=== PATIENT | female | born 1995 | race American Indian/Alaskan Native ===

== ENCOUNTER 2016-05-31 04:30 | Emergency (ER) | payer SELFPAY ==
[2016-05-31 05:06] LABS: Bilirubin,Urine NEG (Negative); Blood,Urine NEG (Negative); Ketones,Urine TR mg/dL (Negative); Leukocyte Esterase,Urine NEG (Negative); Mucus,Urine 3+ /HPF; Nitrite,Urine NEG (Negative)
[2016-05-31 05:42] LABS: Basophils % (Auto) 0.3 % (0.0-1.8); Eosinophils % (Auto) 0.9 % (0.0-4.3); Hematocrit 36.6 % (30.3-42.9); Hemoglobin 11.8 gm/dl (10.1-14.3); Mean Corpuscular HGB Conc 32 % (30-34); Mean Corpuscular Volume 75 fl (79-97); Platelet Count 209 K/mm3 (140-440); Red Blood Count 4.89 M/mm3 (3.65-5.03); Red Cell Distribution Width 15.2 % (13.2-15.2); White Blood Count 6.2 K/mm3 (4.5-11.0)
[2016-05-31 05:48] LABS: Mean Corpuscular Hemoglobin 24 pg (28-32)
[2016-05-31 06:00] LABS: Alanine Aminotransferase 30 units/L (7-56); Albumin 3.6 g/dL (3.9-5); Albumin/Globulin Ratio 0.9 %; Alkaline Phosphatase 85 units/L (35-129); Anion Gap 17 mmol/L; BUN/Creatinine Ratio 8.88; Bilirubin,Total < 0.2 mg/dL (0.1-1.2); Blood Urea Nitrogen 8 mg/dL (7-17); Calcium 8.5 mg/dL (8.4-10.2); Carbon Dioxide 25 mmol/L (22-30); Chloride 102.3 mmol/L (98-107); Glucose 98 mg/dL (65-100); Lipase 33 units/L (13-60); Potassium 3.1 mmol/L (3.6-5.0); Sodium 141 mmol/L (137-145); Total Protein 7.8 g/dL (6.3-8.2)
--- NOTE | 2016-05-31 08:40 | Emergency Department Report ---
ED Abdominal Pain HPI - General Chief Complaint: Abdominal Pain Stated Complaint: ABD PAIN Time Seen by Provider: 05/31/16 08:40 Source: patient, family Mode of arrival: Ambulatory Limitations: No Limitations - History of Present Illness Initial Comments: Patient here complaining of abdominal pain with nausea vomiting and diarrhea since Sunday. She ate some chicken wings and Sunday morning she woke up and she started vomiting she hasn't vomited since yesterday but has been having diarrhea since Sunday night. Her abdominal pain is all over and feels cramping. Denies any fever or chills. Denies any vaginal bleeding or discharge. Last menstrual period was 05/26/2016. She did not take any over-the- counter medication and describes the pain as cramping and 9 out of 10. MD Complaint: abdominal pain, other (nausea vomiting and diarrhea) Onset/Timin -: days(s) Location: diffuse Radiation: none Migration to: no migration Severity: severe Severity scale (0 -10): 9 Quality: cramping Consistency: intermittent Improves With: bowel movement Worsens With: eating Context: possible food poisoning Associated Symptoms: nausea, vomiting, diarrhea. denies: fever, chills, constipation, dysuria, hematemesis, hematochezia, melena, hematuria, anorexia, syncope - Related Data LMP Date: 05/26/16 Previous Rx's Medication Instructions Recorded Last Taken Type Dicyclomine [Bentyl] 20 mg PO TID #12 tablet 05/31/16 Unknown Rx Potassium Chloride [K-Dur] 20 meq PO BID #2 tab 05/31/16 Unknown Rx Promethazine [Phenergan TAB] 25 mg PO Q6HR PRN #15 tab 05/31/16 Unknown Rx Allergies Allergy/AdvReac Type Severity Reaction Status Date / Time No Known Allergies Allergy Verified 05/04/15 13:02 ED Review of Systems ROS: Stated complaint: ABD PAIN Other details as noted in HPI Comment: All other systems reviewed and negative Constitutional: denies: chills, fever Eyes: denies: eye pain ENT: denies: ear pain, throat pain, congestion Respiratory: no symptoms reported Cardiovascular: denies: chest pain, palpitations, edema, syncope Gastrointestinal: abdominal pain, nausea, vomiting, diarrhea. denies: hematemesis, melena, hematochezia Genitourinary: denies: urgency, dysuria, frequency, hematuria, discharge, abnormal menses Musculoskeletal: denies: back pain, arthralgia Skin: denies: rash Neurological: denies: headache ED Past Medical Hx - Past Medical History Previous Medical History?: No - Surgical History Past Surgical History?: No - Family History Family history: no significant - Social History Smoking Status: Never Smoker Substance Use Type: None - Medications Home Medications: Home Medications Medication Instructions Recorded Confirmed Last Taken Type Dicyclomine [Bentyl] 20 mg PO TID #12 tablet 05/31/16 Unknown Rx Potassium Chloride [K-Dur] 20 meq PO BID #2 tab 05/31/16 Unknown Rx Promethazine [Phenergan TAB] 25 mg PO Q6HR PRN #15 tab 05/31/16 Unknown Rx ED Physical Exam - General Limitations: No Limitations General appearance: alert, in no apparent distress - Head Head exam: Present: atraumatic, normocephalic, normal inspection - Eye Eye exam: Present: normal appearance, PERRL, EOMI. Absent: periorbital swelling , periorbital tenderness Pupils: Present: normal accommodation - ENT ENT exam: Present: normal orophraynx, mucous membranes dry, TM's normal bilaterally, normal external ear exam - Neck Neck exam: Present: normal inspection, full ROM. Absent: tenderness, meningismus, lymphadenopathy - Respiratory Respiratory exam: Present: normal lung sounds bilaterally. Absent: respiratory distress, chest wall tenderness - Cardiovascular Cardiovascular Exam: Present: regular rate, normal rhythm, normal heart sounds - GI/Abdominal GI/Abdominal exam: Present: soft, tenderness, normal bowel sounds (generalized mild). Absent: distended, guarding, rebound, rigid, mass, bruit, hernia - Expanded GI/Abdominal Exam Expanded GI/Abdominal exam: Absent: psoas sign, obturator sign, Henriquez's sign, tenderness at [place]'s [place], ascites - Extremities Exam Extremities exam: Present: normal inspection, full ROM, normal capillary refill. Absent: tenderness, pedal edema, joint swelling, calf tenderness - Back Exam Back exam: Present: normal inspection, full ROM. Absent: tenderness, CVA tenderness (R), CVA tenderness (L), muscle spasm, paraspinal tenderness, vertebral tenderness, rash noted - Neurological Exam Neurological exam: Present: alert, oriented X3, normal gait, reflexes normal. Absent: motor sensory deficit - Psychiatric Psychiatric exam: Present: normal affect, normal mood - Skin Skin exam: Present: warm, dry, intact, normal color. Absent: rash ED Course Vital Signs 05/31/16 05/31/16 05/31/16 04:36 08:38 12:11 Temperature 98.0 F 98.0 F Pulse Rate 87 96 H 88 Respiratory 18 18 18 Rate Blood Pressure 142/81 Blood Pressure 118/74 120/72 [Left] O2 Sat by Pulse 98 96 98 Oximetry 05/31/16 12:12 Temperature Pulse Rate Respiratory 18 Rate Blood Pressure Blood Pressure [Left] O2 Sat by Pulse 98 Oximetry - Reevaluation(s) Reevaluation #1: 05/31/16 11:34 Patient given IV fluids 1 L, morphine 4 mg IV, Zofran 8 mg IV and K-Dur 40 mEq for potassium of 3.1. 05/31/16 11:34 ED Medical Decision Making - Lab Data Result diagrams: 05/31/16 05:14 05/31/16 05:14 Lab Results 05/31/16 05/31/16 05/31/16 Range/Units 04:52 05:14 05:14 WBC 6.2 (4.5-11.0) K/mm3 RBC 4.89 (3.65-5.03) M/mm3 Hgb 11.8 (10.1-14.3) gm/dl Hct 36.6 (30.3-42.9) % MCV 75 L (79-97) fl MCH 24 L (28-32) pg MCHC 32 (30-34) % RDW 15.2 (13.2-15.2) % Plt Count 209 (140-440) K/mm3 Lymph % (Auto) 40.5 H (13.4-35.0) % [place] % (Auto) 6.6 (0.0-7.3) % Eos % (Auto) 0.9 (0.0-4.3) % Baso % (Auto) 0.3 (0.0-1.8) % Lymph # 2.5 (1.2-5.4) K/mm3 [place] # 0.4 (0.0-0.8) K/mm3 Eos # 0.1 (0.0-0.4) K/mm3 Baso # 0.0 (0.0-0.1) K/mm3 Seg Neutrophils % 51.7 (40.0-70.0) % Seg Neutrophils # 3.2 (1.8-7.7) K/mm3 Sodium 141 (137-145) mmol/L Potassium 3.1 L (3.6-5.0) mmol/L Chloride 102.3 (98-107) mmol/L Carbon Dioxide 25 (22-30) mmol/L Anion Gap 17 mmol/L BUN 8 (7-17) mg/dL Creatinine 0.9 (0.7-1.2) mg/dL Estimated GFR > 60 ml/min BUN/Creatinine Ratio 8.88 % Glucose 98 (65-100) mg/dL Calcium 8.5 (8.4-10.2) mg/dL Total Bilirubin < 0.2 (0.1-1.2) mg/dL AST 25 (5-40) units/L ALT 30 (7-56) units/L Alkaline Phosphatase 85 (35-129) units/L Total Protein 7.8 (6.3-8.2) g/dL Albumin 3.6 L (3.9-5) g/dL Albumin/Globulin Ratio 0.9 % Lipase 33 (13-60) units/L Urine Color Yellow (Yellow) Urine Turbidity Clear (Clear) Urine pH 5.0 (5.0-7.0) Ur Specific [place] 1.033 H (1.003-1.030) Urine Protein 30 mg/dl (Negative) mg/dL Urine Glucose (UA) Neg (Negative) mg/dL Urine Ketones Tr (Negative) mg/dL Urine Blood Neg (Negative) Urine Nitrite Neg (Negative) Urine Bilirubin Neg (Negative) Urine Urobilinogen 2.0 (<2.0) mg/dL Ur Leukocyte Esterase Neg (Negative) Urine WBC (Auto) 5.0 (0.0-6.0) /HPF Urine RBC (Auto) 3.0 (0.0-6.0) /HPF U Epithel Cells (Auto) 5.0 (0-13.0) /HPF Urine Mucus 3+ /HPF Urine HCG, Qual Negative (Negative) - Radiology Data Radiology results: report reviewed CT scan of the abdomen and pelvis revealed no acute findings. No abnormalities seen. See full radiology report. - Medical Decision Making ED course: Discussed the patient that her lab works were within normal limit except that she has a potassium of 3.1 which is low probably from diarrhea. Also discussed with her that her CT scan shows that she has no abnormalities. I discussed with patient that she has nausea vomiting and diarrhea probably from eating chicken wings which is basically food poisoning. She received IV fluid normal saline 1 L, Zofran 8 mg IV and morphine 4 mg IV. She was able to tolerate 2 cups of apple juice without any vomiting. I also discussed with her that her urine revealed no , no infection and she is slightly dehydrated. I discussed with her that she needs to drink Gatorade and water at least 2-3 L of fluid per day for hydration. I discussed the patient diagnosis and treatment plan and she is in agreement. Patient reports that her pain is now down to 2 out of 10 and she is feeling better. Discharged home with family with prescription for Bentyl, Phenergan and to follow bland diet. Critical care attestation.: If time is entered above; I have spent that time in minutes in the direct care of this critically ill patient, excluding procedure time. ED Disposition Clinical Impression: Nausea, vomiting and diarrhea, Hypokalemia Abdominal pain Qualifiers: Abdominal location: generalized Qualified Code(s): R10.84 - Generalized abdominal pain Disposition: DISCHARGED TO HOME OR SELFCARE Is pt being admited?: No Does the pt Need Aspirin: No Condition: Stable Instructions: Gastroenteritis (ED), Acute Nausea and Vomiting (ED), Acute Diarrhea (ED), Abdominal Pain (ED), Nutrition Tips for Relief of Diarrhea (ED) Additional Instructions: Follow [place] diet Discharge instruction and diagnosis and please read and follow. You can take Phenergan for nausea but please do not drive or operate heavy machinery as this can cause drowsiness. 48 hours rest Increase her fluid intake to 2-3 L of fluid per day to include Gatorade. Your potassium was low due to diarrhea. Please make sure that she drink plenty of Gatorade and take potassium supplement that was ordered 40. Prescriptions: Dicyclomine [Bentyl] 20 mg PO TID #12 tablet Potassium Chloride [K-Dur] 20 meq PO BID #2 tab Promethazine [Phenergan TAB] 25 mg PO Q6HR PRN #15 tab PRN Reason: Nausea Referrals: PRIMARY CARE,MD [Primary Care Provider] - 3-5 Days Forms: Accompanied Note, Work/School Release Form(ED)
[2016-05-31] MEDS ORDERED: ZOFRAN IV ONE (08:41)
[2016-05-31] MEDS ORDERED: MORPHINE IV ONE (08:41)
[2016-05-31] MEDS ORDERED: NACL ONE (08:57)
[2016-05-31] MEDS ORDERED: NACL 0.9% 1000 ML 1,000 ML IV ONE (09:04)
--- NOTE | 2016-05-31 10:38 | Cat Scan Report ---
CT SCAN OF THE ABDOMEN AND PELVIS WITH CONTRAST: HISTORY: Abdominal pain. TECHNIQUE: Helical CT in 1.25mm intervals following IV contrast. Sagittal and coronal reconstructions. FINDINGS: The liver is normal in size and is without focal defect. No gallstones or biliary dilatation are noted. The spleen and pancreas demonstrate a normal size and attenuation with no evidence of abnormal mass. The kidneys are normal in size and position with no evidence of hydronephrosis or mass. The adrenal glands are normal. There is no intestinal obstruction or ascites. Normal appendix. The abdominal aorta is normal. The uterus and adnexa are within normal limits. There is no evidence of peritoneal air or fluid. There is no evidence of any abnormal masses or fluid collections within the pelvis. No adenopathy is identified. The bladder is normal. IMPRESSION: Unremarkable CT scan of the abdomen and pelvis with contrast. No acute process noted.
[2016-05-31] MEDS ORDERED: K-DUR PO ONE (10:59)
[2016-05-31 12:12] VITALS: BP 120/72
== END 2016-05-31 12:10 | disposition home or self-care (01) ==
LOC: ED 04:30
DX: E87.6 Hypokalemia (principal); R10.84 Generalized abdominal pain; R11.2 Nausea with vomiting, unspecified; R19.7 Diarrhea, unspecified
CPT/HCPCS: 36415; 74177; 80053; 81001; 81025; 83690; 85025; 96361; 96374; 96375; 99284; J2270; J2405; J7030; Q9967

== ENCOUNTER 2017-03-10 10:22 | Emergency (ER) | payer SELFPAY ==
[2017-03-10 12:48] LABS: HCG Qualitative,Urine Negative (Negative)
[2017-03-10 12:51] LABS: Bilirubin,Urine NEG (Negative); Blood,Urine MOD (Negative); Mucus,Urine 1+ /HPF; Nitrite,Urine NEG (Negative); Urobilinogen,Urine < 2.0 mg/dL (<2.0)
[2017-03-10 12:55] LABS: RBC,Urine > 182.0 /HPF (0.0-6.0)
[2017-03-10 12:56] LABS: Color,Urine Yellow (Yellow)
--- NOTE | 2017-03-10 14:25 | Emergency Department Report ---
ED Female HPI - General Chief complaint: Urogenital-Female Stated complaint: BACK PAIN/YEAST INFECTION Time Seen by Provider: 03/10/17 13:56 Source: patient Mode of arrival: Ambulatory Limitations: No Limitations - History of Present Illness Initial comments: 21-year-old female past medical history obesity presents with complaint of concern for a possible yeast infection. Patient states that she has some vaginal irritation and has had some white curd-like discharge from vagina over the last week. Patient denies fevers chills abdominal pain nausea vomiting. Is currently sexually active without protection one partner as per patient. Last menstrual period started yesterday. Patient does endorse some dysuria denies increased urinary frequency. Patient is awake alert and oriented 3 nontoxic appearing accompanied by family member at bedside. Patient is also complaining of chronic lower back pain. Denies any flank pain denies nausea vomiting fever or chills adamantly. MD Complaint: vaginal discharge, possible STD Onset/Timin -: week(s) Severity: moderate Last Menstrual Period: 03/09/17 EDC: 12/14/17 Associated Symptoms: vaginal discharge - Related Data Sexually active: Yes Previous Rx's Medication Instructions Recorded Last Taken Type Dicyclomine [Bentyl] 20 mg PO TID #12 tablet 05/31/16 Unknown Rx Potassium Chloride [K-Dur] 20 meq PO BID #2 tab 05/31/16 Unknown Rx Promethazine [Phenergan TAB] 25 mg PO Q6HR PRN #15 tab 05/31/16 Unknown Rx Doxycycline [Vibramycin CAP] 100 mg PO Q12HR #14 capsule 03/10/17 Unknown Rx Ibuprofen [Motrin] 800 mg PO Q8HR PRN #30 tablet 03/10/17 Unknown Rx Allergies Allergy/AdvReac Type Severity Reaction Status Date / Time No Known Allergies Allergy Verified 03/10/17 10:42 ED Review of Systems ROS: Stated complaint: BACK PAIN/YEAST INFECTION Other details as noted in HPI Constitutional: denies: chills, fever Eyes: denies: eye pain, eye discharge, vision change ENT: denies: ear pain, throat pain Respiratory: denies: cough, shortness of breath, wheezing Cardiovascular: denies: chest pain, palpitations Endocrine: no symptoms reported Gastrointestinal: denies: abdominal pain, nausea, diarrhea Genitourinary: dysuria, discharge. denies: urgency Musculoskeletal: denies: back pain, joint swelling, arthralgia Skin: denies: rash, lesions Neurological: denies: headache, weakness, paresthesias Psychiatric: denies: anxiety, depression Hematological/Lymphatic: denies: easy bleeding, easy bruising ED Past Medical Hx - Past Medical History Previous Medical History?: No - Surgical History Past Surgical History?: No - Social History Smoking Status: Never Smoker Substance Use Type: None - Medications Home Medications: Home Medications Medication Instructions Recorded Confirmed Last Taken Type Dicyclomine [Bentyl] 20 mg PO TID #12 tablet 05/31/16 Unknown Rx Potassium Chloride [K-Dur] 20 meq PO BID #2 tab 05/31/16 Unknown Rx Promethazine [Phenergan TAB] 25 mg PO Q6HR PRN #15 tab 05/31/16 Unknown Rx Doxycycline [Vibramycin CAP] 100 mg PO Q12HR #14 capsule 03/10/17 Unknown Rx Ibuprofen [Motrin] 800 mg PO Q8HR PRN #30 tablet 03/10/17 Unknown Rx ED Physical Exam - General Limitations: No Limitations General appearance: alert, in no apparent distress - Head Head exam: Present: atraumatic, normocephalic - Eye Eye exam: Present: normal appearance, PERRL, EOMI - ENT ENT exam: Present: mucous membranes moist - Neck Neck exam: Present: normal inspection - Respiratory Respiratory exam: Present: normal lung sounds bilaterally. Absent: respiratory distress - Cardiovascular Cardiovascular Exam: Present: regular rate, normal rhythm. Absent: systolic murmur, diastolic murmur, rubs, gallop - GI/Abdominal GI/Abdominal exam: Present: soft, normal bowel sounds - External exam: Present: normal external exam Speculum exam: Present: vaginal bleeding (patient is currently menstruating no vaginal lesions observed) Bi-manual exam: Present: normal bi-manual exam (no cervical motion tenderness no adnexal tenderness on exam) - Extremities Exam Extremities exam: Present: normal inspection - Back Exam Back exam: Present: normal inspection - Neurological Exam Neurological exam: Present: alert, oriented X3, CN II-XII intact, normal gait - Psychiatric Psychiatric exam: Present: normal affect, normal mood - Skin Skin exam: Present: warm, dry, intact, normal color. Absent: rash ED Course Vital Signs 03/10/17 10:42 Temperature 98.3 F Pulse Rate 79 Respiratory 18 Rate Blood Pressure 123/72 O2 Sat by Pulse 99 Oximetry ED Medical Decision Making - Medical Decision Making A/P: Vaginal discharge, asymptomatic bacteriuria, chronic back pain 1-wet prep shows no yeast or Trichomonas 2-chlamydia cultures sent 3-case discussed with Dr. Cordvoa, will cover patient empirically with doxycycline and ceftriaxone for possible chlamydial urethritis 4- follow-up with [facility] and primary care Critical care attestation.: If time is entered above; I have spent that time in minutes in the direct care of this critically ill patient, excluding procedure time. ED Disposition Clinical Impression: Vaginal discharge Disposition: DC- TO HOME OR SELFCARE Is pt being admited?: No Does the pt Need Aspirin: No Condition: Stable Prescriptions: Doxycycline [Vibramycin CAP] 100 mg PO Q12HR #14 capsule Ibuprofen [Motrin] 800 mg PO Q8HR PRN #30 tablet PRN Reason: Pain Referrals: [facility] [Provider Group] - 3-5 Days [facility] [Outside] - 3-5 Days Forms: Accompanied Note, Work/School Release Form(ED) Time of Disposition: 15:15
[2017-03-10] MEDS ORDERED: ROCEPHIN IM ONE (15:14)
[2017-03-10] MEDS ORDERED: XYLOCAINE 1% MPF 5 mL INFILTRATI ONE (15:14)
[2017-03-10 16:18] VITALS: BP 122/77
== END 2017-03-10 16:18 | disposition home or self-care (01) ==
LOC: ED 10:22
DX: N89.8 Other specified noninflammatory disorders of vagina (principal); M54.5 Low back pain; G89.29 Other chronic pain
CPT/HCPCS: 81001; 81025; 87210; 87591; 96372; 99283; J0696